=== PATIENT | male | born 1990 | race Two or more races ===

== ENCOUNTER → 2023-09-17 | Emergency (ER) | payer BC ==
[~2023-09-17] VITALS: Ht 170.2 cm; Wt 74.8 kg
[~2023-09-17] MED LIST: ZOLOFT20 MG/1 ML
== END | disposition left against medical advice (07) ==
LOC: ER 20:14
DX: Z53.21 Procedure and treatment not carried out due to patient leaving prior to being seen by health care provider (principal)